=== PATIENT | female | born 1980 | race Caucasian/White ===

== ENCOUNTER 2018-02-01 21:18 | Emergency (ER) | payer OTHER ==
[2018-02-01 21:25] VITALS: BP 129/59; PULSE 93; RESP 18; TEMP 99.2
--- NOTE | 2018-02-01 22:27 | ED ---
General Adult HPI - General Chief complaint: Dental/Oral Stated complaint: Dental Pain Time Seen by Provider: 02/01/18 21:49 Source: patient, RN notes reviewed Mode of arrival: ambulatory Limitations: no limitations - History of Present Illness Initial comments: 37-year-old female presents to the emergency department for a chief complaint of dental pain times 2 days. Patient states she has had dental infections in the past. Patient states the pain is worse with eating or drinking cold or hot substances. Patient denies any fevers or chills at home. Patient denies any stiffness or pain in the neck. Patient denies any facial swelling or throat swelling. Patient has not tried anything for pain. Patient denies any chance of . Patient does not currently have a dentist in this area. Patient has no other complaints at this time including shortness of breath, chest pain, abdominal pain, nausea or vomiting, headache, or visual changes. - Related Data Home Medications Medication Instructions Recorded Confirmed Ibuprofen [Advil] 1,200 mg PO BID PRN 02/01/18 02/01/18 Previous Rx's Medication Instructions Recorded Ibuprofen [Motrin] 600 mg PO Q8HR PRN #20 tab 02/01/18 Penicillin V Potassium [Pen Vee K] 500 mg PO Q6H 10 Days tablet 02/01/18 Allergies Allergy/AdvReac Type Severity Reaction Status Date / Time No Known Allergies Allergy Verified 02/01/18 21:38 Review of Systems ROS Statement: Those systems with pertinent positive or pertinent negative responses have been documented in the HPI. ROS Other: All systems not noted in ROS Statement are negative. Past Medical History Past Medical History: No Reported History History of Any Multi-Drug Resistant Organisms: None Reported Past Surgical History: Tubal Ligation Past Psychological History: No Psychological Hx Reported Smoking Status: Current some day smoker Past Alcohol Use History: None Reported Past Drug Use History: None Reported General Exam Limitations: no limitations General appearance: alert, in no apparent distress Head exam: Present: atraumatic, normocephalic, normal inspection Eye exam: Present: normal appearance, PERRL, EOMI. Absent: scleral icterus, conjunctival injection, periorbital swelling ENT exam: Present: mucous membranes moist, TM's normal bilaterally. Absent: normal oropharynx (Patient has a fractured tooth 20. No drainable abscess noted. Tender to palpation with tongue depressor.) Neck exam: Present: normal inspection, full ROM (No stiffness in the neck. Patient has full flexion and extension and rotation.), other (No swelling in the side of the neck or face.). Absent: tenderness, meningismus, lymphadenopathy Respiratory exam: Present: normal lung sounds bilaterally. Absent: respiratory distress, wheezes, rales, rhonchi, stridor Cardiovascular Exam: Present: regular rate, normal rhythm, normal heart sounds. Absent: systolic murmur, diastolic murmur, rubs, gallop, clicks Course Vital Signs 02/01/18 21:21 Temperature 99.2 F Pulse Rate 93 Respiratory 18 Rate Blood Pressure 129/59 O2 Sat by Pulse 100 Oximetry Medical Decision Making - Medical Decision Making 37-year-old female presents to the emergency department for chief complaint of dental pain 2 days. Patient states she has had dental infections before. She currently has no dentist in this area. Patient denies fever, chills, swelling in the mouth and throat or neck, stiffness in the neck. Patient is afebrile in the emergency department. On exam there is a fractured tooth 20. Tender to palpation. No drainable abscess noted. Patient will be given penicillin and Motrin. She is to take antibiotic as directed. She was given the number to the [facility] and she will call to make an appointment. She will return to the emergency department if she has any fevers or chills, worsening pain, or swelling in the face or throat. Otherwise she will follow-up with primary care in 1-2 days. Disposition Clinical Impression: Acute pulpitis Disposition: HOME SELF-CARE Condition: Good Instructions: Dental Abscess (ED), Toothache (ED) Additional Instructions: Please take Motrin for pain. He may also take Tylenol. Finish antibiotic as discussed. Return to the emergency department if you have any worsening symptoms, pain or stiffness of the neck, or fevers. Otherwise follow-up with dentist in 1-2 days. [facility]: [phone]; [address] [place] [address] Prescriptions: Ibuprofen [Motrin] 600 mg PO Q8HR PRN #20 tab PRN Reason: Pain Penicillin V Potassium [Pen Vee K] 500 mg PO Q6H 10 Days tablet Is patient prescribed a controlled substance at d/c from ED?: No Referrals: Wesley Garcia MD [STAFF PHYSICIAN] - 1-2 days Time of Disposition: 22:26
== END 2018-02-01 22:46 | disposition home or self-care (01) ==
LOC: EC 21:18
DX: K04.01 Reversible pulpitis (principal); F17.200 Nicotine dependence, unspecified, uncomplicated
CPT/HCPCS: 99282

== ENCOUNTER 2023-04-23 12:35 | Emergency (ER) | payer OTHER ==
--- NOTE | 2023-04-23 13:03 | ED ---
General Adult HPI - General Chief complaint: Fall Stated complaint: fall Time Seen by Provider: 04/23/23 12:54 Source: patient, RN notes reviewed Mode of arrival: ambulatory Limitations: no limitations - History of Present Illness Initial comments: Patient is a pleasant 42-year-old female presenting to the emergency Department with sacral pain. Onset of symptoms was yesterday. Patient was at work when she slipped and fell. Patient landed directly on her tailbone. Patient has had pain there since that time. Patient is ambulatory. No incontinence or retention of bowel or bladder. No head injury or loss of consciousness. No other area of concern. - Related Data Home Medications Medication Instructions Recorded Confirmed Ibuprofen [Advil] 1,200 mg PO BID PRN 02/01/18 02/01/18 Previous Rx's Medication Instructions Recorded Ibuprofen [Motrin] 600 mg PO Q8HR PRN #20 tab 02/01/18 Penicillin V Potassium [Pen Vee K] 500 mg PO Q6H 10 Days tablet 02/01/18 Allergies Allergy/AdvReac Type Severity Reaction Status Date / Time nickel Allergy Rash/Hives Verified 04/23/23 12:53 shellfish derived Allergy Rash/Hives Verified 04/23/23 12:53 Review of Systems ROS Statement: Those systems with pertinent positive or pertinent negative responses have been documented in the HPI. ROS Other: All systems not noted in ROS Statement are negative. Constitutional: Denies: fever Eyes: Denies: eye pain ENT: Denies: ear pain Respiratory: Denies: cough Cardiovascular: Denies: chest pain Musculoskeletal: Reports: as per HPI Past Medical History Past Medical History: No Reported History History of Any Multi-Drug Resistant Organisms: None Reported Past Surgical History: Tubal Ligation Past Psychological History: No Psychological Hx Reported Smoking Status: Current every day smoker Past Alcohol Use History: None Reported Past Drug Use History: Marijuana General Exam Limitations: no limitations General appearance: alert, in no apparent distress Head exam: Present: atraumatic Eye exam: Present: normal appearance Respiratory exam: Present: normal lung sounds bilaterally Cardiovascular Exam: Present: regular rate, normal rhythm GI/Abdominal exam: Present: soft. Absent: tenderness Extremities exam: Present: normal inspection Back exam: Present: other (There is sacral tenderness to palpation.). Absent: vertebral tenderness Neurological exam: Present: alert Psychiatric exam: Present: normal affect, normal mood Skin exam: Present: normal color Course Vital Signs 04/23/23 12:49 Temperature 97.6 F Pulse Rate 79 Respiratory 16 Rate Blood Pressure 128/77 O2 Sat by Pulse 100 Oximetry Medical Decision Making - Medical Decision Making Was pt. sent in by a medical professional or institution (, ERLINDA, HR OPERATIONS ADVISOR, urgent care, hospital, or custodial...) When possible be specific @ -No Did you speak to anyone other than the patient for history (EMS, parent, family, police, friend...)? What history was obtained from this source @ -No Did you review nursing and triage notes (agree or disagree)? Why? @ -I reviewed and agree with nursing and triage notes Were old charts reviewed (outside hosp., previous admission, EMS record, old EKG, old radiological studies, urgent care reports/EKG's, custodial records)? Report findings @ -No old charts were reviewed Differential Diagnosis (chest pain, altered mental status, abdominal pain women, abdominal pain men, vaginal bleeding, weakness, fever, dyspnea, syncope, headache, dizziness, GI bleed, back pain, seizure, CVA, palpatations, mental health, musculoskeletal)? @ -Differential Musculoskeletal Muscular strain, contusion, ligament sprain, fracture, arthritis, septic arthritis, bursitis, cellulitis, muscle spasm, nerve compression, DVT, arterial occlusion, herpes zoster, electrolyte abnormality, tumor.... This is not meant to be in all inclusive list EKG interpreted by me (3pts min.). @ -As above X-rays interpreted by me (1pt min.). @ -X-ray suspicious for nondisplaced distal sacral fracture CT interpreted by me (1pt min.). @ -None done U/S interpreted by me (1pt. min.). @ -None done What testing was considered but not performed or refused? (CT, X-rays, U/S, labs)? Why? @ -None What meds were considered but not given or refused? Why? @ -None Did you discuss the management of the patient with other professionals (professionals i.e. ERLINDA Jauregui, HR OPERATIONS ADVISOR, lab, RT, psych nurse, social worker health services, small package and bundle sorter clerk, te acher, delinquency prevention officer, watch caser)? Give summary @ -No Was smoking cessation discussed for >3mins.? @ -No Was critical care preformed (if so, how long)? @ -No Were there social determinants of health that impacted care today? How? (Homelessness, low income, unemployed, alcoholism, drug addiction, transportation, low edu. Level, literacy, decrease access to med. care, retirement, rehab)? @ -No Was there de-escalation of care discussed even if they declined (Discuss DNR or withdrawal of care, Hospice)? DNR status @ -No What co-morbidities impacted this encounter? (DM, HTN, Smoking, COPD, CAD, Cancer, CVA, ARF, Chemo, Hep., AIDS, mental health diagnosis, sleep apnea, morbid obesity)? @ -None Was patient admitted / discharged? Hospital course, mention meds given and rou te, prescriptions, significant lab abnormalities, going to OR and other pertinent info. @ -Patient reevaluated and updated. Undiagnosed new problem with uncertain prognosis? @ -No Drug Therapy requiring intensive monitoring for toxicity (Heparin, Nitro, Insulin, Cardizem)? @ -No Were any procedures done? @ -No Diagnosis/symptom? @ -Sacral fracture Acute, or Chronic, or Acute on Chronic? @ -Acute Uncomplicated (without systemic symptoms) or Complicated (systemic symptoms)? @ -default Side effects of treatment? @ -No Exacerbation, Progression, or Severe Exacerbation? @ -No Poses a threat to life or bodily function? How? (Chest pain, USA, MD, pneumonia, PE, COPD, DKA, ARF, appy, cholecystitis, CVA, Diverticulitis, Homicidal, Suicidal, threat to staff... and all critical care pts) @ -No Disposition Clinical Impression: Sacral fracture Disposition: HOME SELF-CARE Condition: Stable Instructions (If sedation given, give patient instructions): Sacral Fracture (ED) Additional Instructions: Please do follow-up with primary care physician in the next couple of days for recheck. [id number] Motrin as needed. Please use inflatable doughnut pillow to sit on for comfort. Return for increased pain, swelling, loss of bowel or bladder control, worsening symptoms or other concerns. Is patient prescribed a controlled substance at d/c from ED?: No Referrals: Anthony Toth MD [STAFF PHYSICIAN] - 1-2 days Time of Disposition: 14:40
--- NOTE | 2023-04-23 14:05 | XR ---
EXAMINATION TYPE: XR sacrum coccyx DATE OF EXAM: 04/23/2023 COMPARISON: None HISTORY: Fall on tailbone, pain TECHNIQUE: 2 view sacrum and coccyx FINDINGS: In the lateral projection there is some subtle lucency within the distal most sacrum above the sacrococcygeal junction. Nondisplaced sacral fracture could be considered. Correlate with locatio n of the patient's pain. Sacrum and coccyx otherwise appear intact. IMPRESSION: 1. Nondisplaced distal sacral fracture could be considered. Correlate with location of patient's carrie n.
[2023-04-23] MEDS ORDERED: ACET/COD 300 MG/30 MG STARTER PACK 6 TAB BTL PO STA (14:40)
[2023-04-23 14:59] VITALS: BP 95/57; PULSE 82; RESP 18; TEMP 98.6
== END 2023-04-23 14:59 | disposition home or self-care (01) ==
LOC: EC 12:35
DX: S32.10XA Unspecified fracture of sacrum, initial encounter for closed fracture (principal); F17.200 Nicotine dependence, unspecified, uncomplicated; F12.90 Cannabis use, unspecified, uncomplicated; W01.0XXA Fall on same level from slipping, tripping and stumbling without subsequent striking against object, initial encounter
CPT/HCPCS: 72220; 99283

== ENCOUNTER 2024-01-09 10:16 | Emergency (ER) | payer BC, OTHER ==
[2024-01-09 10:39] VITALS: RESP 18; TEMP 98.3
--- NOTE | 2024-01-09 10:57 | ED ---
Dizziness HPI - General Chief Complaint: Dizziness Stated Complaint: Dizziness Time Seen by Provider: 01/09/24 10:38 Source: patient, RN notes reviewed Mode of arrival: ambulatory Limitations: no limitations - History of Present Illness Initial Comments: This is a 43-year-old female presents emergency department chief complaint of feelings of dizziness over the past 3 days. Stated that symptoms began on Sunday afternoon at 1400. This is described as a room spinning sensation where she has experienced mild double vision during this time. She endorses nausea no vomiting. Denies headaches, chest pain or pressure, palpitations, lightheadedness, changes in vision, syncope, tinnitus or changes in hearing. States that symptoms are exacerbated with head movement and are lessened with sitting and laying. She also denies ear fullness or pressure, rhinorrhea, cough, congestion, fevers. - Related Data Home Medications Medication Instructions Recorded Confirmed Buprenorphine/Naloxone 8Mg/2Mg 2 film SL DAILY 01/09/24 01/09/24 [Suboxone 8-2Mg Film] Previous Rx's Medication Instructions Recorded Meclizine [Antivert] 25 mg PO TID PRN #15 tab 01/09/24 Ondansetron Odt [Zofran Odt] 4 mg PO Q8HR PRN #10 tab 01/09/24 Allergies Allergy/AdvReac Type Severity Reaction Status Date / Time nickel Allergy Rash/Hives Verified 01/09/24 13:59 shellfish derived Allergy Rash/Hives Verified 01/09/24 13:59 Review of Systems ROS Statement: Those systems with pertinent positive or pertinent negative responses have been documented in the HPI. ROS Other: All systems not noted in ROS Statement are negative. Past Medical History Past Medical History: No Reported History History of Any Multi-Drug Resistant Organisms: None Reported Past Surgical History: Tubal Ligation Past Psychological History: No Psychological Hx Reported Smoking Status: Current every day smoker Past Alcohol Use History: None Reported Past Drug Use History: Marijuana General Exam - General Exam Comments Initial Comments: Visual Physical Exam Vital signs reviewed General: Well-appearing, nontoxic, no acute distress. Head: Normocephalic, atraumatic Eyes: PERRLA, EOMI ENT: Airway patent Chest: Nonlabored breathing Skin: No visual rash, normal skin tone Neuro: Alert and oriented 3 Musculoskeletal: No gross abnormalities Limitations: no limitations General appearance: alert, in no apparent distress Head exam: Present: atraumatic, normocephalic, normal inspection Eye exam: Present: normal appearance, PERRL, EOMI. Absent: scleral icterus, conjunctival injection, periorbital swelling ENT exam: Present: normal exam, mucous membranes moist Neck exam: Present: normal inspection. Absent: tenderness, meningismus, lymphadenopathy Respiratory exam: Present: normal lung sounds bilaterally. Absent: respiratory distress, wheezes, rales, rhonchi, stridor Cardiovascular Exam: Present: regular rate, normal rhythm, normal heart sounds. Absent: systolic murmur, diastolic murmur, rubs, gallop, clicks GI/Abdominal exam: Present: soft, normal bowel sounds. Absent: distended, tenderness, guarding, rebound, rigid Extremities exam: Present: normal inspection, full ROM, normal capillary refill. Absent: tenderness, pedal edema, joint swelling, calf tenderness Back exam: Present: normal inspection Neurological exam: Present: alert, oriented X3, CN II-XII intact Psychiatric exam: Present: normal affect, normal mood Skin exam: Present: warm, dry, intact, normal color. Absent: rash Course Vital Signs 01/09/24 01/09/24 10:21 13:52 Temperature 98.3 F Pulse Rate 80 61 Respiratory 18 18 Rate Blood Pressure 106/67 109/73 O2 Sat by Pulse 99 98 Oximetry Medical Decision Making - Medical Decision Making Was pt. sent in by a medical professional or institution (, PA, IT INTEGRATION ARCHITECT, urgent care, hospital, or senior care...) When possible be specific @ -No Did you speak to anyone other than the patient for history (EMS, parent, family, police, friend...)? What history was obtained from this source @ -No Did you review nursing and triage notes (agree or disagree)? Why? @ -I reviewed and agree with nursing and triage notes Were old charts reviewed (outside hosp., previous admission, EMS record, old EKG, old radiological studies, urgent care reports/EKG's, senior care records)? Report findings @ -No old charts were reviewed Differential Diagnosis (chest pain, altered mental status, abdominal pain women, abdominal pain men, vaginal bleeding, weakness, fever, dyspnea, syncope, headache, dizziness, GI bleed, back pain, seizure, CVA, palpatations, mental health, musculoskeletal)? @ -Differential Dizziness: Benign paroxysmal positional Vertigo, Menieres disease, otitis media, acoustic neuroma, vertebrobasilar insufficiency, cerebellar stroke, encephalitis, hyp ovolemic, arrhythmia, coronary artery syndrome, anemia, this is not meant to be an all-inclusive list EKG interpreted by me (3pts min.). @ -As above X-rays interpreted by me (1pt min.). @ -None done CT interpreted by me (1pt min.). @ -None done U/S interpreted by me (1pt. min.). @ -None done What testing was considered but not performed or refused? (CT, X-rays, U/S, labs)? Why? @ -None What meds were considered but not given or refused? Why? @ -None Did you discuss the management of the patient with other professionals (professionals i.e. , PA, IT INTEGRATION ARCHITECT, lab, RT, psych nurse, social media analyst, dealer support technician, teacher, access control officer, case sealer)? Give summary @ -No Was smoking cessation discussed for >3mins.? @ -No Was critical care preformed (if so, how long)? @ -No Were there social determinants of health that impacted care today? How? (Homelessness, low income, unemployed, alcoholism, drug addiction, transportation, low edu. Level, literacy, decrease access to med. care, detention, rehab)? @ -No Was there de-escalation of care discussed even if they declined (Discuss DNR or withdrawal of care, Hospice)? DNR status @ -No What co-morbidities impacted this encounter? (DM, HTN, Smoking, COPD, CAD, Cancer, CVA, ARF, Chemo, Hep., AIDS, mental health diagnosis, sleep apnea, morbid obesity)? @ -None Was patient admitted / discharged? Hospital course, mention meds given and route, prescriptions, significant lab abnormalities, going to OR and other pertinent info. @ -Discharge. 43-year-old female chief complaint of dizziness. Complete physical examination with no acute findings. Additionally comprehensive neurological examination no evidence for cerebellar ataxia, cranial nerves I through XII intact. Is able to tolerate oral liquids and ambulate. CBC, CMP unremarkable. Additionally urinalysis no signs of infection. Patient was given 1 L fluid bolus, Antivert, IV push of Benadryl and Zofran. On reevaluation patient states that her symptoms have markedly improved and dizziness has almost subsided. Shared decision make with the patient at this time further imaging not recommended due to minimal clinical evidence for neurological cause. Patient is in agreement with plan. Patient will be discharged with meclizine and Zofran to take as needed. Recommend she follows up with her primary care physician within the next few days for further evaluation. All questions ans wered at bedside. Strict return parameters discussed with the patient. This case discussed with Dr. Blackwood Undiagnosed new problem with uncertain prognosis? @ -No Drug Therapy requiring intensive monitoring for toxicity (Heparin, Nitro, Insulin, Cardizem)? @ -No Were any procedures done? @ -No Diagnosis/symptom? @ -vertigo, dizziness Acute, or Chronic, or Acute on Chronic? @ -acute Uncomplicated (without systemic symptoms) or Complicated (systemic symptoms)? @ -uncomplicated Side effects of treatment? @ -No Exacerbation, Progression, or Severe Exacerbation? @ -No Poses a threat to life or bodily function? How? (Chest pain, USA, GA, pneumonia, PE, COPD, DKA, ARF, appy, cholecystitis, CVA, Diverticulitis, Homicidal, Suicidal, threat to staff... and all critical care pts) @ -No - Lab Data Result diagrams: 01/09/24 11:28 01/09/24 11:28 Lab Results 01/09/24 01/09/24 01/09/24 Range/Units 11:28 11:28 12:41 WBC 10.0 (3.8-10.6) k/uL RBC 4.98 (3.80-5.40) m/uL Hgb 15.1 (11.4-16.0) gm/dL Hct 46.7 H (34.0-46.0) % MCV 93.8 (80.0-100.0) fL MCH 30.3 (25.0-35.0) pg MCHC 32.3 (31.0-37.0) g/dL RDW 12.4 (11.5-15.5) % Plt Count 210 (150-450) k/uL MPV 8.9 Neutrophils % 75 % Lymphocytes % 19 % Monocytes % 3 % Eosinophils % 1 % Basophils % 0 % Neutrophils # 7.5 (1.3-7.7) k/uL Lymphocytes # 1.9 (1.0-4.8) k/uL Monocytes # 0.3 (0-1.0) k/uL Eosinophils # 0.1 (0-0.7) k/uL Basophils # 0.0 (0-0.2) k/uL Sodium 136 L (137-145) mmol/L Potassium 3.9 (3.5-5.1) mmol/L Chloride 104 (98-107) mmol/L Carbon Dioxide 23 (22-30) mmol/L Anion Gap 9 mmol/L BUN 7 (7-17) mg/dL Creatinine 0.54 (0.52-1.04) mg/dL Est GFR (CKD-EPI)AfAm >90 (>60 ml/min/1.73 sqM) Est GFR (CKD-EPI)NonAf >90 (>60 ml/min/1.73 sqM) Glucose 114 H (74-99) mg/dL Calcium 9.3 (8.4-10.2) mg/dL Total Bilirubin 0.6 (0.2-1.3) mg/dL AST 24 (14-36) U/L ALT 21 (4-34) U/L Alkaline Phosphatase 66 (38-126) U/L Total Protein 7.3 (6.3-8.2) g/dL Albumin 4.2 (3.5-5.0) g/dL Urine Color Light Yellow Urine Appearance Cloudy H (Clear) Urine pH 6.5 (5.0-8.0) Ur Specific Kathleen 1.015 (1.001-1.035) Urine Protein Negative (Negative) Urine Glucose (UA) Negative (Negative) Urine Ketones Negative (Negative) Urine Blood Negative (Negative) Urine Nitrite Negative (Negative) Urine Bilirubin Negative (Negative) Urine Urobilinogen <2.0 (<2.0) mg/dL Ur Leukocyte Esterase Negative (Negative) Urine RBC 2 (0-5) /hpf Urine WBC 1 (0-5) /hpf Ur Squamous Epith Cells 9 H (0-4) /hpf Urine Mucus Occasional H (None) /hpf Disposition Clinical Impression: Vertigo, Dizzinesses Narrative: Please return to the Emergency Department if symptoms worsen or any other concerns. Follow with your primary care provider next week for further evaluation. Meclizine and Zofran as needed for symptomatic relief. increase oral rehydration. Disposition: HOME SELF-CARE Condition: Good Instructions (If sedation given, give patient instructions): Vertigo (ED) Prescriptions: Meclizine [Antivert] 25 mg PO TID PRN #15 tab PRN Reason: Vertigo Ondansetron Odt [Zofran Odt] 4 mg PO Q8HR PRN #10 tab PRN Reason: Nausea Is patient prescribed a controlled substance at d/c from ED?: No Referrals: None,Stated [Primary Care Provider] - 1-2 days Time of Disposition: 15:00
[2024-01-09 11:44] LABS: Basophils % (A) 0 %; Eosinophils # (A) 0.1 k/uL (0-0.7); Eosinophils % (A) 1 %; HCT 46.7 % (34.0-46.0); HGB 15.1 gm/dL (11.4-16.0); Lymphocytes # (A) 1.9 k/uL (1.0-4.8); Lymphocytes % (A) 19 %; MCH 30.3 pg (25.0-35.0); MCHC 32.3 g/dL (31.0-37.0); MCV 93.8 fL (80.0-100.0); Mean Platelet Volume 8.9; Monocytes # (A) 0.3 k/uL (0-1.0); Monocytes % (A) 3 %; Neutrophils # (A) 7.5 k/uL (1.3-7.7); Neutrophils % (A) 75 %; Platelet Count 210 k/uL (150-450); RBC 4.98 m/uL (3.80-5.40); RDW 12.4 % (11.5-15.5)
[2024-01-09 12:00] LABS: ALT 21 U/L (4-34); AST 24 U/L (14-36); African American GFR (CKD) >90 (>60 ml/min/1.73 sqM); Albumin 4.2 g/dL (3.5-5.0); Alkaline Phosphatase 66 U/L (38-126); Anion Gap 9 mmol/L; Blood Urea Nitrogen 7 mg/dL (7-17); Calcium 9.3 mg/dL (8.4-10.2); Carbon Dioxide 23 mmol/L (22-30); Chloride 104 mmol/L (98-107); Glucose 114 mg/dL (74-99); Non-African American GFR(CKD) >90 (>60 ml/min/1.73 sqM); Potassium 3.9 mmol/L (3.5-5.1); Sodium 136 mmol/L (137-145); Total Bilirubin 0.6 mg/dL (0.2-1.3); Total Protein 7.3 g/dL (6.3-8.2)
[2024-01-09 13:12] LABS: Appearance,Urine Cloudy (Clear); Bilirubin,Urine Negative (Negative); Blood,Urine Negative (Negative); Color,Urine Light Yellow; Glucose,Urine (UA) Negative (Negative); Ketones,Urine Negative (Negative); Leukocyte Esterase,Urine Negative (Negative); Mucus,Urine Occasional /hpf; Nitrite,Urine Negative (Negative); PH, Urine 6.5 (5.0-8.0); Protein,Urine Negative (Negative); RBC,Urine 2 /hpf (0-5); Specific Gravity,Urine 1.015 (1.001-1.035); Squamous Epithelial Cell,Urine 9 /hpf (0-4); Urobilinogen,Urine <2.0 mg/dL (<2.0); WBC,Urine 1 /hpf (0-5)
[2024-01-09] MEDS: SODIUM CHLORIDE 0.9% 1,000 ML IV STA (14:00)
[2024-01-09] MEDS: MECLIZINE 12.5 MG TAB PO STA (14:02)
[2024-01-09] MEDS: diphenhydrAMINE 50 MG/ML 1 ML VIAL IVP STA (14:06)
[2024-01-09] MEDS: ONDANSETRON 4 MG/2 ML VIAL IVP STA (14:08)
[2024-01-09 14:29] VITALS: BP 109/73; PULSE 61
== END 2024-01-09 15:12 | disposition home or self-care (01) ==
LOC: EC 10:16
DX: R42 Dizziness and giddiness (principal); F17.200 Nicotine dependence, unspecified, uncomplicated; F12.90 Cannabis use, unspecified, uncomplicated; Z91.013 Allergy to seafood; Z88.8 Allergy status to other drugs, medicaments and biological substances
CPT/HCPCS: 36415; 93005; 80053; 85025; 81001; 99284; 96374; 96375; 96361; J1200; J2405